=== PATIENT | female | born 1990 | race Caucasian/White ===

== ENCOUNTER → 2025-04-07 | Outpatient (CLI) | payer OTHER ==
[2025-04-07 17:24] LABS: PLATELET COUNT, AUTOMATED 231 10^3/uL (150-450)
[2025-04-07 17:53] LABS: FREE T4 1.49 NG/DL (0.89-1.76)
[2025-04-07 17:57] LABS: ESTIMATED AVERAGE GLUCOSE 128.0 MG/DL (60-110)
[2025-04-07 18:19] LABS: HIV 1&2 SCREEN NEGATIVE (NEGATIVE)
[2025-04-07 18:27] LABS: HEPATITIS C VIRUS ABY INDEX 0.05 INDEX (<0.8)
[2025-04-07 18:44] LABS: Trichomonas vaginalis (AMP) NOT DETECTED (NEGATIVE)
[2025-04-07 19:08] LABS: GC DNA AMPLIFICATION NEGATIVE (NEGATIVE)
== END ==
LOC: M PLALAB 15:48
PROVIDERS: ATTEND Advanced Practice Midwife
DX: Z34.82 Encounter for supervision of other normal pregnancy, second trimester (principal)

== ENCOUNTER → 2025-05-21 | Outpatient (CLI) | payer OTHER | LOC: M WHC 11:38 | PROVIDERS: ATTEND Advanced Practice Midwife | DX: O43.112 Circumvallate placenta, second trimester (principal); Z3A.21 21 weeks gestation of pregnancy ==

== ENCOUNTER → 2025-07-01 | Outpatient (CLI) | payer OTHER ==
[2025-07-01 14:19] LABS: PLATELET COUNT, AUTOMATED 260 10^3/uL (150-450)
[2025-07-01 14:35] LABS: ESTIMATED AVERAGE GLUCOSE 126.0 MG/DL (60-110)
[2025-07-01 14:50] LABS: FREE T4 1.15 NG/DL (0.89-1.76)
[2025-07-01 15:14] LABS: HIV 1&2 SCREEN NEGATIVE (NEGATIVE)
[2025-07-01 15:22] LABS: HEPATITIS C VIRUS ABY INDEX 0.16 INDEX (<0.8)
== END ==
LOC: M PLALAB 09:31
PROVIDERS: ATTEND Advanced Practice Midwife
DX: O24.012 Pre-existing type 1 diabetes mellitus, in pregnancy, second trimester (principal)

== ENCOUNTER → 2025-08-09 | Outpatient (CLI) | payer OTHER | LOC: M WHC 10:01 | PROVIDERS: ATTEND Advanced Practice Midwife | DX: O24.012 Pre-existing type 1 diabetes mellitus, in pregnancy, second trimester (principal) ==